=== PATIENT | male | born 1990 | race Caucasian/White ===

== ENCOUNTER 2018-07-17 11:00 | Emergency (ER) | payer OTHER ==
[2018-07-17 11:40] VITALS: BP 153/90
--- NOTE | 2018-07-17 12:18 | ED ---
Throat Pain/Nasal Congestion - HPI Summary HPI Summary: 28 yr old male with the complaint of runny nose, post nasal drip, sinus pressure. The patient states he has been ill for two days. He feels he has a sinus infection with headache and pressure in the frontal area. No other complaints. - History of Current Complaint Chief Complaint: UCGeneralIllness Time Seen by Provider: 07/17/18 12:05 - Allergies/Home Medications Allergies/Adverse Reactions: Allergies Allergy/AdvReac Type Severity Reaction Status Date / Time No Known Allergies Allergy Verified 07/17/18 11:37 PMH/Surg Hx/FS Hx/Imm Hx Cardiovascular History: Reports: Hx Hypertension - Surgical History Surgery Procedure, Year, and Place: adnoids. ear tubes Infectious Disease History: No Infectious Disease History: Denies: Traveled Outside the [place] in Last 30 Days - Family History Known Family History: Positive: None - Social History Occupation: Employed Full-time Alcohol Use: Rare Substance Use Type: Reports: None Smoking Status (MU): Never Smoked Tobacco Review of Systems Positive: Nasal Discharge, Other - sinus pain pressure Positive: Headache All Other Systems Reviewed And Are Negative: Yes Physical Exam Triage Information Reviewed: Yes Vital Signs On Initial Exam: Initial Vitals Temp Pulse Resp BP Pulse Ox 97.9 F 96 22 153/90 96 07/17/18 11:36 07/17/18 11:36 07/17/18 11:36 07/17/18 11:36 07/17/18 11:36 Vital Signs Reviewed: Yes Appearance: Positive: Obese Skin: Positive: Warm, Skin Color Reflects Adequate Perfusion Head/Face: Positive: Normal Head/Face Inspection Eyes: Positive: EOMI ENT: Positive: Pharyngeal erythema, Nasal congestion, TMs normal, Sinus tenderness - bilateral frontal Neck: Positive: Nontender Respiratory/Lung Sounds: Positive: Clear to Auscultation, Breath Sounds Present Cardiovascular: Positive: RRR. Negative: Murmur Abdomen Description: Negative: Distended Musculoskeletal: Positive: Strength/ROM Intact Neurological: Positive: Sensory/Motor Intact, Alert, Oriented to Person Place, Time, CN Intact II-III, Normal Gait, Speech Normal Psychiatric: Positive: Normal - [place] Coma Scale Best Eye Response: 4 - Spontaneous Best Motor Response: 6 - Obeys Commands Best Verbal Response: 5 - Oriented Coma Scale Total: 15 Diagnostics - Vital Signs Vital Signs Temp Pulse Resp BP Pulse Ox 07/17/18 11:36 97.9 F 96 22 153/90 96 - Laboratory Lab Statement: Any lab studies that have been ordered have been reviewed, and results considered in the medical decision making process. EENT Course/Dx - Course Course Of Treatment: 28 yr old with sinusitis. Rx with Augmentin. - Diagnoses Provider Diagnoses: Hypertension, Sinusitis Discharge - Sign-Out/Discharge Documenting (check all that apply): Patient Departure All imaging exams completed and their final reports reviewed: No Studies - Discharge Plan Condition: Good Disposition: HOME Prescriptions: Amoxicillin/Clavulanate TAB* [Augmentin TAB 875*] 875 mg PO BID #20 tab Patient Education Materials: Sinusitis (ED), Hypertension (ED) Forms: *Work Release Referrals: Kd Jolley [Primary Care Provider] - 2 Days - Billing Disposition and Condition Condition: GOOD Disposition: Home
== END 2018-07-17 12:31 | disposition home or self-care (01) ==
LOC: UCCORT 11:00
DX: J32.9 Chronic sinusitis, unspecified (principal); I10 Essential (primary) hypertension
CPT/HCPCS: 99202; G0463

== ENCOUNTER 2019-01-19 15:13 | Emergency (ER) | payer SELFPAY ==
[2019-01-19 15:45] VITALS: BP 136/76
--- NOTE | 2019-01-19 15:50 | UC ---
UC General HPI - HPI Summary HPI Summary: L ear pain x 3 days. Now has a white drainage. no fever. - History of Current Complaint Chief Complaint: UCEar Stated Complaint: EAR PAIN Time Seen by Provider: 01/19/19 15:45 Hx Obtained From: Patient Onset/Duration: Gradual Onset Timing: Constant Pain Intensity: 5 Associated Signs & Symptoms: Negative: Fever, Headache - Allergy/Home Medications Allergies/Adverse Reactions: Allergies Allergy/AdvReac Type Severity Reaction Status Date / Time No Known Allergies Allergy Verified 01/19/19 15:39 Home Medications: Home Medications Lisinopril TAB* [Prinivil TAB 5 MG*] 1 tab DAILY 01/19/19 [History Confirmed ] PMH/Surg Hx/FS Hx/Imm Hx Cardiovascular History: Hypertension - Surgical History Surgical History: Yes Surgery Procedure, Year, and Place: adnoids. ear tubes - Family History Known Family History: Positive: None - Social History Lives: With Family Alcohol Use: Rare Substance Use Type: None Smoking Status (MU): Never Smoked Tobacco Review of Systems All Other Systems Reviewed And Are Negative: No Constitutional: Negative: Fever, Chills Eyes: Negative: Eye Redness ENT: Positive: Ear Ache. Negative: Sore Throat, Sinus Pain/Tenderness Neurological: Negative: Headache Physical Exam Triage Information Reviewed: Yes Appearance: Well-Appearing Vital Signs: Initial Vital Signs Temp 96.3 F 01/19/19 15:40 Pulse 78 01/19/19 15:40 Resp 16 01/19/19 15:40 BP 136/76 01/19/19 15:40 Pulse Ox 99 01/19/19 15:40 Vital Signs Reviewed: Yes Eyes: Positive: Conjunctiva Clear ENT: Positive: Pharynx normal, TM red - R, L obscured by white exudate. Discomfort with L auricular tug. No auricular adenopathy or mastoid tenderness.. Negative: Nasal congestion, Nasal drainage Neck: Positive: Supple Respiratory: Positive: No respiratory distress Neurological: Positive: Alert Psychological: Positive: Age Appropriate Behavior Skin Exam: Normal Skin: Negative: Rashes Course/Dx - Diagnoses Provider Diagnosis: Otitis externa, Otitis media Discharge ED - Sign-Out/Discharge Documenting (check all that apply): Patient Departure All imaging exams completed and their final reports reviewed: No Studies - Discharge Plan Condition: Stable Disposition: HOME Prescriptions: Amoxicillin PO (*) [Amoxicillin 875 MG (*)] 875 mg PO BID 10 Days #20 tab Ciproflox/Dexameth OTIC.SUSP* [Ciprodex OTIC.SUSP*] 4 drop .SEE ORDER BID 7 Days #1 btl Patient Education Materials: Otitis Externa (ED), Ear Infection (ED) Referrals: Kd Jolley [Primary Care Provider] - 7 Days - Billing Disposition and Condition Condition: STABLE Disposition: Home
== END 2019-01-19 15:55 | disposition home or self-care (01) ==
LOC: UCCORT 15:13
DX: H60.90 Unspecified otitis externa, unspecified ear (principal); H66.90 Otitis media, unspecified, unspecified ear; I10 Essential (primary) hypertension
CPT/HCPCS: 99212; G0463

== ENCOUNTER 2019-05-30 19:48 | Emergency (ER) | payer OTHER ==
[2019-05-30 20:01] VITALS: BP 134/67
[2019-05-30 20:10] LABS: Influenza B Molecular POSITIVE (Negative)
[2019-05-30] MEDS ORDERED: Albuterol HFA INHALER* 8 gm MDI INH ONE (20:17)
[2019-05-30] MEDS ORDERED: Amoxicillin PO (*) 500 MG CAP PO ONE (20:18)
--- NOTE | 2019-05-30 20:18 | UC ---
FLU HPI - HPI Summary HPI Summary: 29-year-old male comes in with chief complaint of 3 days of influenza-like symptoms. He's had a fever chills body aches and headache cough chest congestion. Distress [id number] medicines with very little relief of symptoms. When he lays down his chest feels very congested and he's having wheezing. - History of Current Complaint Chief Complaint: UCGeneralIllness Stated Complaint: COUGH/FEVER/CHILLS/DIARRHEA Time Seen by Provider: 05/30/19 20:01 Pain Intensity: 0 - Allergy/Home Medications Allergies/Adverse Reactions: Allergies Allergy/AdvReac Type Severity Reaction Status Date / Time No Known Allergies Allergy Verified 05/30/19 19:55 Home Medications: Home Medications Acetaminophen [Tylenol Extra Strength] 2 tab PO ONCE 05/30/19 [History Confirmed 05/30/19] Dm/Acetaminophen/Doxylamine [Nighttime Cold-Flu Liquid] 1 dose PO ONCE 05/30/19 [History Confirmed 05/30/19] Ibuprofen TAB* [Advil TAB*] 800 mg PO ONCE 05/30/19 [History Confirmed 05/30/19] PMH/Surg Hx/FS Hx/Imm Hx Previously Healthy: Yes - morbid obesity Cardiovascular History: Hypertension - Surgical History Surgical History: Yes Surgery Procedure, Year, and Place: adnoids. ear tubes - Family History Known Family History: Positive: None - Social History Alcohol Use: Rare Substance Use Type: None Smoking Status (MU): Former Smoker When Did the Patient Quit Smoking/Using Tobacco: 2012 Review of Systems All Other Systems Reviewed And Are Negative: Yes Constitutional: Positive: Fever, Chills, Other - see hpi Skin: Positive: Negative Eyes: Positive: Negative ENT: Positive: Nasal Discharge, Sinus Congestion Respiratory: Positive: Cough, Other - see hpi Cardiovascular: Positive: Negative Gastrointestinal: Positive: Diarrhea Motor: Positive: Negative Neurovascular: Positive: Negative Musculoskeletal: Positive: Myalgia Neurological: Positive: Negative Psychological: Positive: Negative Is Patient Immunocompromised?: No Physical Exam Triage Information Reviewed: Yes Appearance: No Pain Distress, Well-Nourished, Ill-Appearing - mild Vital Signs: Initial Vital Signs Temp 99.1 F 05/30/19 19:57 Pulse 116 05/30/19 19:57 Resp 15 05/30/19 19:57 BP 134/67 05/30/19 19:57 Pulse Ox 96 02/01/20 19:57 Vital Signs Reviewed: Yes Eye Exam: Normal Eyes: Positive: Conjunctiva Clear ENT: Positive: Pharynx normal, Nasal congestion, Nasal drainage, TMs normal Neck: Positive: Supple Respiratory: Positive: Lungs clear, Normal breath sounds, No respiratory distress Cardiovascular: Positive: RRR Musculoskeletal: Positive: Strength Intact, ROM Intact Neurological: Positive: Alert, Muscle Tone Normal Psychological: Positive: Normal Response To Family, Age Appropriate Behavior Skin Exam: Normal Flu Course/Dx - Course Course Of Treatment: We discussed viral versus bacterial infections and the role of antibiotics. Patient prefers to be on antibiotics at this time. Patient is to follow-up his primary care doctor get reevaluated sooner if worsening questions or concerns. - Differential Dx/Diagnosis Provider Diagnosis: Influenza, Bronchitis with bronchospasm Discharge ED - Sign-Out/Discharge Documenting (check all that apply): Patient Departure All imaging exams completed and their final reports reviewed: No Studies - Discharge Plan Condition: Stable Disposition: HOME Prescriptions: Amoxicillin PO (*) [Amoxicillin 875 MG (*)] 875 mg PO BID #20 tab Oseltamivir CAP* [Tamiflu CAP*] 75 mg PO BID #10 cap Patient Education Materials: Influenza (ED), Acute Bronchitis (ED), Bronchospasm (ED) Referrals: Kd Jolley [Primary Care Provider] - Additional Instructions: FOLLOW UP WITH YOUR DOCTOR IF NOT COMPLETELY IMPROVED. GET REEVALUATED SOONER IF NOT IMPROVING OR WORSE OR ANY QUESTIONS OR CONCERNS. - Billing Disposition and Condition Condition: STABLE Disposition: Home
== END 2019-05-30 20:32 | disposition home or self-care (01) ==
LOC: UCCORT 19:48
DX: J11.1 Influenza due to unidentified influenza virus with other respiratory manifestations (principal); E66.01 Morbid (severe) obesity due to excess calories; J40 Bronchitis, not specified as acute or chronic; J98.01 Acute bronchospasm; Z87.891 Personal history of nicotine dependence
CPT/HCPCS: 87651; 99212; A9270-GY; G0463